=== PATIENT | male | born 1970 | race Caucasian/White ===

== ENCOUNTER 2022-06-12 09:40 | Day surgery (SDC) | payer OTHER ==
[~2022-06-12] VITALS: Ht 182.9 cm; Wt 136.1 kg
[2022-06-12] MEDS ORDERED: MIDAZOLAM 5 MG/5 ML VIAL ONE (10:06)
[2022-06-12] MEDS ORDERED: LIDOCAINE 2% 100 MG/5 ML UJET TP ONE (10:06)
[2022-06-12] MEDS ORDERED: diphenhydrAMINE 50 MG/ML VIAL ONE (10:06)
[2022-06-12] MEDS ORDERED: fentaNYL citrate 0.05 MG/ML VIAL ONE (10:06)
[2022-06-12] MEDS ORDERED: fentaNYL citrate 0.05 MG/ML VIAL IVP ONE (11:50)
[2022-06-12] MEDS ORDERED: MIDAZOLAM 5 MG/5 ML VIAL IV ONE (11:50)
== END 2022-06-12 11:23 | disposition home or self-care (01) ==
LOC: MDS 09:40 → MMU 09:40 → MDS 11:23
PROVIDERS: ATTEND Internal Medicine Gastroenterology
DX: Z12.11 Encounter for screening for malignant neoplasm of colon (principal); D12.4 Benign neoplasm of descending colon; E78.5 Hyperlipidemia, unspecified; G47.30 Sleep apnea, unspecified; Z99.89 Dependence on other enabling machines and devices; Z79.899 Other long term (current) drug therapy; Z83.71 Family history of colonic polyps; Z20.822 Contact with and (suspected) exposure to COVID-19
CPT/HCPCS: 45385; 87426; 88305; J2250; J3010; J1200